=== PATIENT | male | born 1945 | race Caucasian/White ===

== ENCOUNTER → 2017-08-28 | Outpatient (CLI) | payer OTHER, BC | LOC: FIMAGING 15:36 | PROVIDERS: ATTEND Podiatrist Foot & Ankle Surgery | DX: M76.61 Achilles tendinitis, right leg (principal) ==

== ENCOUNTER 2018-03-23 00:40 | Emergency (ER) | payer OTHER, BC ==
--- NOTE | 2018-03-23 01:09 | EDPHY ---
H & P Time Seen by Provider: 03/23/18 00:58 HPI/ROS: CHIEF COMPLAINT: Left knee pain and swelling HISTORY OF PRESENT ILLNESS: 72-year-old male presents to the emergency department by private vehicle with concerns about pain in his left knee. The patient states that he has some known arthritis. He played tennis 2 days earlier in the week and the following day was having some pain in the medial aspect of his left knee. Since that time over last 2-3 days he has had some increased swelling and increased pain. He denies any specific known trauma or injury. He has pain especially with weight-bearing. ROS: He denies numbness or tingling in his toes, pain in his left calf or left ankle. Denies pain in the left hip. Denies pain in his low back. Past Medical/Surgical History: Appendectomy, tonsillectomy, knee surgeries Social History: Smoking Status: Never smoked Physical Exam: On examination the patient has effusion noted to the anterior superior aspect of the left knee. He has very mild pain with palpation in the left medial joint line. Nontender to palpate the lateral joint line. He is able to lift his leg up without any difficulty. His patellar tendon and quadriceps tendon are intact. He is able to flex to about 30-40 degrees before he is limited by pain and swelling. He has no pain with very small passive range of motion. No signs of septic joint. No redness. Nontender to palpate with light touch. His left ankle is nontender. No pain with external or internal rotation of the left hip. He has a strong dorsalis pedis pulse and posterior tibial pulse on the left foot. Calf is nontender. Full range of motion of the right lower extremity. Constitutional: Initial Vital Signs Temperature (C) 36.6 C 03/23/18 00:45 Heart Rate 82 03/23/18 00:45 Respiratory Rate 16 03/23/18 00:45 Blood Pressure 129/68 H 03/23/18 00:45 O2 Sat (%) 98 03/23/18 00:45 O2 Delivery Mode Room Air Allergies/Adverse Reactions: No Known Allergies Allergy (Unverified 12/11/13 22:41) Home Medications: Medication Instructions Recorded Ascorbic Acid [Vitamin C 250 mg 250 mg PO DAILY 12/12/13 (OTC)] Glucosamine Sulfate [Glucosamine 500 mg PO DAILY 12/12/13 Sulfate 500 MG (OTC)] Ibuprofen [Motrin 200 mg (OTC)] 200 mg PO DAILY 12/12/13 Iron 03/23/18 oxyCODONE/APAP 5/325 [Percocet 1 - 2 tab PO Q4-6PRN PRN #15 tab 03/23/18 5/325] MDM/Departure - MDM Imaging Results: Imaging Impressions Knee X-Ray 03/23/18 01:06 Impression: Marked progression in osteoarthritic degenerative changes, as detailed above. As clinically directed, MRI could be considered for further assessment. Imaging: I viewed and interpreted images myself Procedures: Patient was placed in straight leg knee immobilizer and examined post application in good placement with normal DESIGN PAINTER. Medications Given: Discontinued Medications Ibuprofen (Motrin) 600 mg PO EDNOW ONE Stop: 03/23/18 02:10 Last Admin: 03/23/18 02:16 Dose: 600 mg Oxycodone/Acetaminophen (Percocet 5/325mg Prepack#4) 1 btl TAKEHOME EDNOW ONE Stop: 03/23/18 02:11 Last Admin: 03/23/18 02:15 Dose: 1 btl ED Course/Re-evaluation: 72-year-old male presents to the emergency department with pain and swelling to his left knee. On examination the patient has no evidence of septic arthritis. There is no redness or warmth. He has no pain with small passive range of motion. He has limited flexion secondary to his pain and swelling. X-rays reveal significant degenerative changes. I did discuss the case with Dr. Swift who also reviewed the patient's x-rays. He recommended not aspirating the knee. I did explain to the patient that aspirating fluid from his knee maybe potentially cause infection. He was given oral Percocet. He has had a history of anemia and he has taking iron tablets. He has taken ibuprofen with food in the past. I cautioned him with taking the ibuprofen on an empty stomach. I also warned regarding risks of gastrointestinal bleeding. The patient was placed in knee immobilizer and Cam wrap was applied for some compression. He has his own crutches. He was encouraged to have close follow-up with his orthopedic surgeon and return sooner to the emergency department if he develops increasing pain or swelling or if he feels worse in any way. - Depart Disposition: Home, Routine, Self-Care Clinical Impression: Left knee sprain Qualifiers: Encounter type: initial encounter Involved ligament of knee: unspecified ligament Qualified Code(s): S83.92XA - Sprain of unspecified site of left knee, initial encounter Condition: Good Instructions: Oxycodone/Acetaminophen (By mouth), Knee Sprain (ED) Additional Instructions: Cam wrap for compression as discussed. Knee immobilizer for comfort and support. Ibuprofen 600 mg every 8 hr with food as needed for pain. Ice, elevate to help reduce swelling. Percocet for severe pain as directed. Follow up with your orthopedic surgeon this week to recheck. Prescriptions: oxyCODONE/APAP 5/325 [Percocet 5/325] 1 - 2 tab PO Q4-6PRN PRN #15 tab PRN Reason: For Moderate To Severe Pain Referrals: Annalisa Velasquez MD [Primary Care Provider] - As per Instructions Sp Velasquez MD [Medical Doctor] - As per Instructions Ovidio Mo MD [Medical Doctor] - 2-3 days without fail (Orthopedic surgeon on-call)
[2018-03-23] MEDS ORDERED: IBUPROFEN 600 MG TAB PO ONE (02:09)
[2018-03-23] MEDS ORDERED: OXYCODONE/APAP 5/325MG PREPACK#4 BTL TAKEHOME ONE (02:10)
[2018-03-23 02:47] VITALS: BP 141/83
== END 2018-03-23 02:45 | disposition home or self-care (01) ==
DX: S83.92XA Sprain of unspecified site of left knee, initial encounter (principal); X58.XXXA Exposure to other specified factors, initial encounter; Y99.8 Other external cause status; Y93.73 Activity, racquet and hand sports
CPT/HCPCS: 73564; 99283; L1830

== ENCOUNTER → 2018-04-18 | Outpatient (CLI) | payer OTHER, BC | LOC: FIMAGING 09:45 | PROVIDERS: ATTEND Orthopaedic Surgery | DX: Z01.818 Encounter for other preprocedural examination (principal); M17.12 Unilateral primary osteoarthritis, left knee ==

== ENCOUNTER 2018-05-14 09:02 | Observation (INO) | payer OTHER, BC ==
[~2018-05-14 09:02] MED LIST: ROPIVACAINE 0.2% 80 MG, EPINEPHrine 0.2 MG, KETOROLAC TROMETHAMINE 30 MG in SYRINGE 0 ML IU ONE; TRANEXAMIC ACID 3,000 MG in NS (SYRINGE) 50 ML IRR ONE; TRANEXAMIC ACID 3,000 MG/50 ML BAG IRR ONE; VANCOMYCIN 1 GM VIAL ONE
[2018-05-14] MEDS ORDERED: FAMOTIDINE 20 MG TAB PO ONE (09:43)
[2018-05-14] MEDS ORDERED: DEXAMETHASONE 4 MG/ML VIAL IVP ONE (09:43)
[2018-05-14] MEDS ORDERED: ACETAMINOPHEN 325 MG TAB PO ONE (09:43)
[2018-05-14] MEDS ORDERED: ceFAZolin 2 GM/DEXTROSE 100 ML IV ONE (09:43)
[2018-05-14] MEDS ORDERED: LIDOCAINE 1% 2 ML INJ ID PRN (09:44)
[2018-05-14] MEDS ORDERED: LR 1,000 ML IV ONE (09:44)
[2018-05-14] MEDS ORDERED: MIDAZOLAM 2 MG/2 ML VIAL ONE (11:20)
[2018-05-14] MEDS ORDERED: PROPOFOL/EMULSION 500 MG/50 ML BOTTLE IV ONE (11:26)
--- NOTE | 2018-05-14 11:48 | PDANEPAE ---
ANE Past Medical History - Cardiovascular History Hx Hypertension: No Hx Arrhythmias: No Hx Chest Pain: No Hx Coronary Artery / Peripheral Vascular Disease: No Hx CHF / Valvular Disease: No Hx Palpitations: No - Pulmonary History Hx COPD: No Hx Asthma/Reactive Airway Disease: No Hx Recent Upper Respiratory Infection: No Hx Oxygen in Use at Home: No Hx Sleep Apnea: No Sleep Apnea Screening Result - Last Documented: Negative - Neurologic History Hx Cerebrovascular Accident: No Hx Seizures: No Hx Dementia: No - Endocrine History Hx Diabetes: No - Renal History Hx Renal Disorders: No - Liver History Hx Hepatic Disorders: No - Neurological & Psychiatric Hx Hx Neurological and Psychiatric Disorders: No - Cancer History Hx Cancer: No - Congenital Disorder History Hx Congenital Disorders: No - GI History Hx Gastrointestinal Disorders: No - Other Health History Other Health History: ANEMIA - Chronic Pain History Chronic Pain: No - Surgical History Prior Surgeries: R KNEE SCOPE. APPENDECTOMY. TONSILLECTOMY. WISDOM TOOTH. CATARACTS ANE Review of Systems Review of Systems: - Exercise capacity METS (RN): 5 METS ANE Patient History - Allergies Allergies/Adverse Reactions: No Known Allergies Allergy (Verified 04/18/18 13:12) - Home Medications Home Medications: Ascorbic Acid [Vitamin C 250 mg (OTC)] 250 mg PO DAILY 12/12/13 [Last Taken 1 Week Ago ~05/07/18] Ibuprofen [Motrin 200 mg (OTC)] 200 mg PO DAILY PRN 12/12/13 [Last Taken 2 Weeks Ago ~04/30/18] Ferrous Sulfate [Ferrous Sulf 325 MG (*)] 325 mg PO DAILY 03/23/18 [Last Taken 1 Day Ago ~05/13/18] Cholecalciferol Vit D3 [Vitamin D3 (*)] 1,000 units PO DAILY 04/18/18 [Last Taken 1 Week Ago ~05/07/18] Cyanocobalamin [Vitamin B12 (*)] 1,000 mcg PO DAILY 04/18/18 [Last Taken 1 Week Ago ~05/07/18] Magnesium Oxide [Magnesium Oxide 400 mg (*)] 400 mg PO DAILY 04/24/18 [Last Taken 1 Week Ago ~05/07/18] - NPO status NPO Since - Liquids (Date): 05/14/18 NPO Since - Liquids (Time): 08:00 NPO Since - Solids (Date): 06/12/18 NPO Since - Solids (Time): 22:30 - Smoking Hx Smoking Status: Never smoked - Family Anes Hx Family Hx Anesthesia Complications: NEG ANE Labs/Vital Signs - Vital Signs Blood Pressure: 146/82 Heart Rate: 58 Respiratory Rate: 18 O2 Sat (%): 95 Height: 177.8 cm Weight: 76.657 kg ANE Anesthesia Plan Anesthesia Plan: spinal Regional Anesthesia: adductor canal FNB Urgent/Emergent Case: Corinna garibay completed preop but documented later for safe timely pt care
[2018-05-14] MEDS ORDERED: ROPIVACAINE HCL 150 MG/30 ML INJ ONE (12:23)
[2018-05-14] MEDS ORDERED: DIPHENOXYLATE/ATROPINE LOMOTIL 1 TAB PO PRN (12:46)
[2018-05-14] MEDS ORDERED: ONDANSETRON DISINTEGRATING 4 MG TAB PO PRN (12:46)
[2018-05-14] MEDS ORDERED: CYCLOBENZAPRINE 10 MG TAB PO PRN (12:46)
[2018-05-14] MEDS ORDERED: METOCLOPRAMIDE 10 MG/2 ML VIAL IVP PRN (12:46)
[2018-05-14] MEDS ORDERED: BISACODYL 10 MG SUPP PR PRN (12:46)
[2018-05-14] MEDS ORDERED: oxyCODONE IR 5 MG TAB PO PRN (12:46)
[2018-05-14] MEDS ORDERED: TEMAZEPAM 15 MG CAP PO PRN (12:46)
[2018-05-14] MEDS ORDERED: PROMETHAZINE HCL 25 MG SUPPR PR PRN (12:46)
[2018-05-14] MEDS ORDERED: ONDANSETRON 4 MG/2 ML VIAL IVP PRN ×2 (12:46→12:57)
[2018-05-14] MEDS ORDERED: diphenhydrAMINE 25 MG CAP PO PRN (12:46)
[2018-05-14] MEDS ORDERED: PROMETHAZINE HCL 25 MG/ML INJ IVP PRN ×2 (12:46→12:57)
[2018-05-14] MEDS ORDERED: LACTULOSE 20 GM/30 ML UDCUP PO PRN (12:46)
[2018-05-14] MEDS ORDERED: POLYETHYLENE GLYCOL 3350 17 GM PKT PO PRN (12:46)
[2018-05-14] MEDS ORDERED: MAGNESIUM HYDROXIDE 30 ML UDCUP PO PRN (12:46)
--- NOTE | 2018-05-14 12:46 | POSTOPPROG ---
Post Op Note Date of Operation: 05/14/18 Surgeon: Jatin Estrada Whiting Machine Operator: eri estrada Anesthesiologist: dr. handley Anesthesia: Spinal Pre-op Diagnosis: left knee OA Post-op Diagnosis: same Indication: left knee pain Procedure: L medial partial knee arthroplasty robot assisted Findings: severe knee OA Inf/Abcess present in the surg proc area at time of surgery?: No EBL: 50-100
[2018-05-14] MEDS ORDERED: NALOXONE HCL 0.4 MG/ML INJ IVP PRN (12:57)
[2018-05-14] MEDS ORDERED: PHENYLEPHRINE HCL 100 MCG/ML SYR IVP PRN (12:57)
[2018-05-14] MEDS ORDERED: fentaNYL 100 MCG/2 ML INJ IVP PRN (12:57)
[2018-05-14] MEDS ORDERED: LR 500 ML IV PRN (12:57)
--- NOTE | 2018-05-14 12:58 | POSTANESTH ---
Post Anesthetic Evaluation Cardiovascular Status: Normal, Stable Respiratory Status: Normal, Stable Level of Consciousness/Mental Status: Can Participate in Eval Pain Control: Adequate, Prn Tx Ordered Nausea/Vomiting Control: Adequate, Prn Tx Ordered Complications Possibly Related to Anesthesia: None Noted
[2018-05-14] MEDS ORDERED: LR 1,000 ML IV SCH (13:00)
--- NOTE | 2018-05-14 14:18 | PDHPUP ---
History & Physical Update H&P update statement: This history and physical update is based on an assessment of the patient which was completed after admission or registration (within 24 hours), but prior to the surgery/procedure. H&P update: H&P reviewed & patient examined, no change in patient's condition since H&P completed
[2018-05-14] MEDS: ACETAMINOPHEN 325 MG TAB PO SCH (18:05)
[2018-05-14] MEDS: ceFAZolin 2 GM/DEXTROSE 100 ML IV SCH (18:06)
--- NOTE | 2018-05-14 20:34 | GOP ---
[f rep st] OPERATIVE REPORT DATE OF OPERATION: 05/14/2018 SURGEON: Davion Alvarado MD NEUROSURGEON: Davion Alvarado MD. MACHINE OPERATOR REPLANTER: HANDY Fernandez. ANESTHESIA: Spinal. PREOPERATIVE DIAGNOSIS: Left knee osteoarthritis. POSTOPERATIVE DIAGNOSIS: Left knee osteoarthritis. PROCEDURE PERFORMED: Left medial compartment partially placed with computer navigation and robotic a ÁNGELA rosenbaum uni-knee. FINDINGS: Pathology: Severe medial compartment osteoarthritis left knee, left thigh and left femur. ESTIMATED BLOOD LOSS: 30 cc. INDICATIONS: This is a 72-year-old man with progressive pain of the left knee unresponsive to conser vative care. Risks and benefits of surgical intervention were explained in detail. DESCRIPTION OF PROCEDURE: The patient was brought to the operating room and placed on the table in s upine position. Spinal anesthesia was induced without difficulty. A pneumatic tourniquet was applie d about the left proximal thigh and the leg was prepped and draped in sterile fashion. Attention was turned first to the distal aspect of the left femur. At 3 cm proximal to the lateral rise of the fe mur, 2 percutaneous half pins were placed for fixation of the femoral array. In a similar fashion, 2 pins were placed anterolateral on the tibia for fixation of the tibial array. External land marking and registration of the hip center was performed without difficulty. After exsanguination by elevation, the tourniquet was inflated. Incision was made from the tibial tuberosity to the superior pole of the patella. Dissection was car ried out through the subcutaneous tissue to the deep fascia using Bovie electrocautery for hemostasis . Medial parapatellar arthrotomy was carried out to the superior pole of the patella. The medial co llateral ligament was elevated and the infrapatellar fat pad was resected. Internal femoral and tibi al registration was carried out without difficulty and the femoral and tibial checkpoints were placed and verified for accuracy. Attention was turned to the femur. The foot print for the size 4 femoral component was cut with the 6 mm bur using the KitBoost robotic system and verified for accuracy against the CT based plan. The hole was cut for the femoral post. In a similar fashion, the 6 mm bur was used to cut the foot print for t he size 4 tibial component using the SHLOMO system and verified for accuracy against the CT based plan. Attention was turned to the posterior aspect of the knee and remnants of the medial meniscus were exc ised. The posterior capsule was injected with ropivacaine, epinephrine and Toradol. Trial reduction was carried out and there was excellent range of motion, alignment and stability using the size 4 fe moral component and the size 4 x 9 mm polyethylene tibial component. All trials were then removed. The joint was thoroughly irrigated and carefully dried. One package o f cement and 1 gram of vancomycin were mixed in the vacuum mixer and placed on the fixation surfaces of all components. The components were implanted and all excess cement was thoroughly removed. Impla nt placement was verified against the CT view plan and found to be excellent. The tourniquet was deflated and all bleeders were coagulated. The wound was thoroughly irrigated and closed using interrupted sutures of 2-0 Vicryl for the joint capsule. The subcu was closed with 3-0 Vicryl and the skin with 4-0 Monocryl. Dermabond and Steri-Strips were applied, followed by a compr essive dressing. The patient was then moved from the operating room to the recovery room in good con dition, having tolerated the procedure well. CASE CLASSIFICATION: Clean. /[id number]/MODL
[2018-05-14] MEDS: ASPIRIN 81 MG CHEWABLE TAB PO SCH (21:12)
[2018-05-14] MEDS: FAMOTIDINE 20 MG TAB PO SCH (21:12)
[2018-05-14] MEDS: SENNOSIDES/DOCUSATE SODIUM TAB PO SCH (21:13)
[2018-05-15] MEDS: ACETAMINOPHEN 325 MG TAB PO SCH ×2 (00:34→05:30)
[2018-05-15] MEDS: ceFAZolin 2 GM/DEXTROSE 100 ML IV SCH (00:35)
[2018-05-15 07:32] VITALS: BP 120/67
[2018-05-15] MEDS: ASPIRIN 81 MG CHEWABLE TAB PO SCH (08:30)
[2018-05-15] MEDS: FAMOTIDINE 20 MG TAB PO SCH (08:30)
[2018-05-15] MEDS: SENNOSIDES/DOCUSATE SODIUM TAB PO SCH (08:31)
--- NOTE | 2018-05-15 08:46 | SOAPPROG ---
SOAP Progress Note Assessment/Plan: Assessment: Patient is doing well POD 1 s/p L med MPL Pain management: pain is well controlled on oral pain meds. VTE ppx: recommend aspirin 81 mg BID for 4 weeks, cont KVNG and SCDs Anemia: level is expected initially postop. Asymptomatic. Continue to monitor D/c planning: d/c to home today pending release from PT Plan: 05/15/18 08:46 Subjective: no pain, denies SOB, chest pain and n/V Objective: Vital Signs Temp Pulse Resp BP Pulse Ox 36.6 C 52 L 16 120/67 94 05/15/18 07:29 05/15/18 07:29 05/15/18 07:29 05/15/18 07:29 05/15/18 07:29 Laboratory Results 05/15/18 04:35 05/14/18 05/15/18 05/16/18 05:59 05:59 05:59 Intake Total 850 Output Total 700 Balance 150 LLE: incision dressing is clean and dry, NVI, +pf/df ICD10 Worksheet Patient Problems: Problems Problem Status Onset Primary localized osteoarthritis of left knee Acute SBO (small bowel obstruction) Acute
[2018-05-15] MEDS ORDERED: FERROUS SULFATE 325 MG TAB PO SCH (09:00)
--- NOTE | 2018-05-15 15:35 | GDS ---
[f rep st] DISCHARGE SUMMARY ADMISSION DIAGNOSIS: Left knee osteoarthritis. DISCHARGE DIAGNOSIS: Left knee osteoarthritis. PROCEDURE: Left partial knee arthroplasty, medial compartment, robotic assisted. Computer navigatio n. VTE PROPHYLAXIS: Recommend aspirin 81 mg twice daily for 4 weeks. BRIEF DESCRIPTION OF HOSPITAL STAY: Patient was admitted for an elective joint arthroplasty. The pa tient tolerated the procedure well and has passed physical therapy. The patient was given appropriat e antibiotic prophylaxis and venous thromboembolism prophylaxis. The patient's pain was well control led on oral pain medication, patient was holding down food, and had urinated. Decision was made to d ischarge the patient. The patient was given post-operative prescriptions pre-operatively. PLAN: Follow up as scheduled in Dr. Alvarado's office June 05 at 9:30 a.m. /[id number]/MODL
== END 2018-05-15 12:51 | disposition home or self-care (01) ==
LOC: F3N 09:02
PROVIDERS: ADMIT Orthopaedic Surgery; ATTEND Orthopaedic Surgery
PROC: 8E0Y0CZ Robotic Assisted Procedure of Lower Extremity, Open Approach (ICD-10-PCS; principal; 2018-05-14 11:15)
PROC: 8E0YXBG Computer Assisted Procedure of Lower Extremity, With Computerized Tomography (ICD-10-PCS; principal; 2018-05-14 11:15)
PROC: 0SRD069 Replacement of Left Knee Joint with Oxidized Zirconium on Polyethylene Synthetic Substitute, Cemented, Open Approach (ICD-10-PCS; principal; 2018-05-14 11:15)
DX: M17.11 Unilateral primary osteoarthritis, right knee (principal)
CPT/HCPCS: 27446; 73560; 97110; 97116; 97161; C1713; C1776; G8978; G8979; G8980; J0171; J0690; J1100; J1885; J2250; J2704; J2795; J3370

== ENCOUNTER 2018-05-22 03:47 | Emergency (ER) | payer OTHER, BC ==
[2018-05-22] MEDS ORDERED: fentaNYL 100 MCG/2 ML INJ IVP ONE (03:55)
[2018-05-22] MEDS ORDERED: ONDANSETRON 4 MG/2 ML VIAL IVP ONE (03:55)
[2018-05-22] MEDS ORDERED: NS 1,000 ML IV ONE ×2 (03:55)
--- NOTE | 2018-05-22 03:58 | EDPHY ---
H & P Stated Complaint: abd pain Time Seen by Provider: 05/22/18 03:55 HPI/ROS: HPI The patient presents brought in by ambulance for abdominal pain, nausea and vomiting which began 4-5 hours prior to presentation. He went out to dinner and afterwards began to experience abdominal pain which she describes as a mild discomfort. After that he began vomiting and has had vomiting for the last 4 hr intermittently, only able to take sips of fluid in between. He has had similar episodes of pain he reports. He is about 1 week status post total knee arthroplasty by Dr. Alvarado. He has recuperating at home. He is been monitoring his bowel movements and has had normal bowel movements over the last several days. He has not had any fevers or chills. In the ambulance he received Zofran 4 mg IV. REVIEW OF SYSTEMS Constitutional: No fever, no chills. Eyes: No discharge. ENT: No sore throat. Cardiovascular: No chest pain, no palpitations. Respiratory: No cough, no shortness of breath. Gastrointestinal: No abdominal pain, no vomiting. Genitourinary: No hematuria. Musculoskeletal: No back pain. Skin: No rashes. Neurological: No headache. PMHx: Recent total knee arthroplasty, status post appendectomy, had bowel obstruction in 2013 related to constipation Soc Hx: Here with his PHYSICAL General Appearance: Alert, uncomfortable appearing Eyes: Pupils equal and round no pallor or injection ENT, Mouth: Mucous membranes dry Respiratory: There are no retractions, lungs are clear to auscultation Cardiovascular: Regular rate and rhythm Gastrointestinal: Abdomen is soft and mildly diffusely tender in all quadrants without any rebound or guarding Neurological: A&O, moves all extremities Skin: Warm and dry, no rashes Musculoskeletal: Neck is supple non tender Extremities: symmetrical, full range of motion Psychiatric: Patient is oriented X 3, there is no agitation Source: Patient Exam Limitations: No limitations - Personal History Current Tetanus Diphtheria and Acellular Pertussis (TDAP): Yes - Medical/Surgical History Hx Asthma: No Hx Chronic Respiratory Disease: No Hx Diabetes: No Hx Cardiac Disease: No Hx Renal Disease: No Hx Cirrhosis: No Hx Alcoholism: No Hx HIV/AIDS: No Hx Splenectomy or Spleen Trauma: No Other PMH: Appendectomy, R knee surgery, L knee surgery, Nelson teeth rem., tonsillectomy - Social History Smoking Status: Never smoked Constitutional: Initial Vital Signs Temperature (C) 36.6 C 05/22/18 03:50 Heart Rate 89 05/22/18 03:50 Respiratory Rate 20 05/22/18 03:50 Blood Pressure 143/94 H 05/22/18 03:50 O2 Sat (%) 98 05/22/18 03:50 O2 Delivery Mode Room Air Allergies/Adverse Reactions: No Known Allergies Allergy (Verified 04/18/18 13:12) Home Medications: Medication Instructions Recorded Ascorbic Acid [Vitamin C 250 mg 250 mg PO DAILY 12/12/13 (*)] Ferrous Sulfate [Ferrous Sulf 325 325 mg PO DAILY 03/23/18 MG (*)] Cholecalciferol Vit D3 [Vitamin D3 1,000 units PO DAILY 04/18/18 (*)] Cyanocobalamin [Vitamin B12 (*)] 1,000 mcg PO DAILY 04/18/18 Magnesium Oxide [Magnesium Oxide 400 mg PO DAILY 04/24/18 400 mg (*)] Acetaminophen [Tylenol 325mg (*)] 650 mg PO Q6HRS tab 05/15/18 Aspirin [Aspirin 81mg (*)] 81 mg PO BID tab.chew 05/15/18 Polyethylene Glycol 3350 [Miralax 17 gm PO DAILY PRN pkt 05/15/18 17 gm (*)] Sennosides/Docusate Sodium 1 - 2 tab PO BID tab 05/15/18 [Senokot-S] celeCOXIB [Celebrex (*)] 200 mg PO DAILY cap 05/15/18 oxyCODONE IR [Oxycodone Ir (*)] 5 - 10 mg PO Q3HRS PRN tab 05/15/18 Medical Decision Making - Diagnostics Imaging Results: CT scan abdomen pelvis with IV contrast demonstrates ileus, discussed with Dr. Slater of Radiology. Imaging: Discussed imaging studies w/ scallop shucker Radiologist Differential Diagnosis: This is a 72-year-old man, 1 week postoperative from total knee arthroplasty, presents with abdominal pain, nausea and vomiting for the last 4-5 hours. On exam, he is uncomfortable appearing with diffuse abdominal tenderness and distension. Differential diagnosis includes small bowel obstruction, constipation, gastroenteritis, gastritis. In the emergency department, patient was given IV fluids and antiemetics. He felt well after these treatments. Labs revealed slight leukocytosis. Decision was made for CT scan of his abdomen which demonstrated an ileus. I suspect this is from his opiate pain medication use. I have discussed this with him. He thinks he may be able to cut down on his opiate use. I have also advised him that he can take MiraLax as needed and he will try this. He was able to tolerate a p.o. Challenge without difficulty and asked to go home , he will be discharged with his . He is happy with this plan. - Data Points Laboratory Results: Laboratory Results 05/22/18 03:40 05/22/18 03:40 05/22/18 05/22/18 05/22/18 04:50 03:40 03:40 WBC 12.86 10^3/uL H 10^3/uL (3.80-9.50) RBC 4.89 10^6/uL 10^6/uL (4.40-6.38) Hgb 14.8 g/dL g/dL (13.7-17.5) Hct 43.5 % % (40.0-51.0) MCV 89.0 fL fL (81.5-99.8) MCH 30.3 pg pg (27.9-34.1) MCHC 34.0 g/dL g/dL (32.4-36.7) RDW 13.3 % % (11.5-15.2) Plt Count 358 10^3/uL 10^3/uL (150-400) MPV 9.1 fL fL (8.7-11.7) Neut % (Auto) 91.0 % H % (39.3-74.2) Lymph % (Auto) 4.5 % L % (15.0-45.0) [place] % (Auto) 3.8 % L % (4.5-13.0) Eos % (Auto) 0.1 % L % (0.6-7.6) Baso % (Auto) 0.1 % L % (0.3-1.7) Nucleat RBC Rel Count 0.0 % % (0.0-0.2) Absolute Neuts (auto) 11.70 10^3/uL H 10^3/uL (1.70-6.50) Absolute Lymphs (auto) 0.58 10^3/uL L 10^3/uL (1.00-3.00) Absolute Monos (auto) 0.49 10^3/uL 10^3/uL (0.30-0.80) Absolute Eos (auto) 0.01 10^3/uL L 10^3/uL (0.03-0.40) Absolute Basos (auto) 0.01 10^3/uL L 10^3/uL (0.02-0.10) Absolute Nucleated RBC 0.00 10^3/uL 10^3/uL (0-0.01) Immature Gran % 0.5 % % (0.0-1.1) Immature Gran # 0.06 10^3/uL 10^3/uL (0.00-0.10) RBC/WBC/PLT Morphology TNP Platelet Estimate TNP Sodium 138 mEq/L mEq/L (135-145) Potassium 4.7 mEq/L mEq/L (3.3-5.0) Chloride 96 mEq/L L mEq/L (97-110) Carbon Dioxide 23 mEq/l mEq/l (22-31) Anion Gap 19 mEq/L H mEq/L (8-16) BUN 19 mg/dL mg/dL (7-23) Creatinine 0.9 mg/dL mg/dL (0.7-1.3) Estimated GFR > 60 Glucose 157 mg/dL H mg/dL (70-100) Calcium 9.9 mg/dL mg/dL (8.5-10.4) Total Bilirubin 0.8 mg/dL mg/dL (0.1-1.4) Conjugated Bilirubin 0.4 mg/dL mg/dL (0.0-0.5) Unconjugated Bilirubin 0.4 mg/dL mg/dL (0.0-1.1) AST 20 IU/L IU/L (17-59) ALT 32 IU/L IU/L (21-72) Alkaline Phosphatase 76 IU/L IU/L (38-126) Total Protein 7.4 g/dL g/dL (6.3-8.2) Albumin 4.4 g/dL g/dL (3.5-5.0) Lipase 192 IU/L IU/L (23-300) Urine Color YELLOW Urine Appearance CLEAR Urine pH 6.0 (5.0-7.5) Ur Specific [place] 1.018 (1.002-1.030) Urine Protein NEGATIVE (NEGATIVE) Urine Ketones TRACE H (NEGATIVE) Urine Blood NEGATIVE (NEGATIVE) Urine Nitrate NEGATIVE (NEGATIVE) Urine Bilirubin NEGATIVE (NEGATIVE) Urine Urobilinogen NEGATIVE EU EU (0.2-1.0) Ur Leukocyte Esterase NEGATIVE (NEGATIVE) Urine Glucose NEGATIVE (NEGATIVE) Medications Given: Discontinued Medications Fentanyl (Sublimaze) 50 mcg IVP EDNOW ONE Stop: 05/22/18 03:56 Last Admin: 05/22/18 04:08 Dose: 50 mcg Sodium Chloride (Ns) 1,000 mls @ 0 mls/hr IV EDNOW ONE; Wide Open PRN Reason: Protocol Stop: 05/22/18 03:56 Last Admin: 05/22/18 04:07 Dose: 1,000 mls Sodium Chloride (Ns) 1,000 mls @ 0 mls/hr IV EDNOW ONE; Wide Open PRN Reason: Protocol Stop: 05/22/18 03:56 Last Admin: 05/22/18 04:08 Dose: 1,000 mls Ondansetron HCl (Zofran) 4 mg IVP EDNOW ONE Stop: 05/22/18 03:56 Last Admin: 05/22/18 04:08 Dose: 4 mg Ondansetron HCl (Zofran Odt 4 Mg Prepack#2) 1 btl TAKEHOME EDNOW ONE Stop: 05/22/18 05:49 Last Admin: 05/22/18 05:53 Dose: 1 btl Departure - Departure Disposition: Home, Routine, Self-Care Clinical Impression: Ileus Vomiting Qualifiers: Vomiting type: unspecified Vomiting Intractability: non-intractable Nausea presence: with nausea Qualified Code(s): R11.2 - Nausea with vomiting, unspecified Condition: Good Instructions: Ondansetron (By mouth), Ileus (ED) Additional Instructions: Please make sure to drink small sips of fluid throughout the day. You should return to the emergency department if your worse in any way. Referrals: Patient,NotPresent [Primary Care Provider] - As per Instructions
[2018-05-22 04:04] LABS: PLATELET COUNT 358 10^3/uL (150-400)
[2018-05-22] MEDS ORDERED: IOPAMIDOL (ISOVUE-300) 100 ML BTL ONE (04:53)
[2018-05-22 05:41] VITALS: BP 135/66
[2018-05-22] MEDS ORDERED: ONDANSETRON 4MG PREPACK#2 BTL TAKEHOME ONE (05:48)
== END 2018-05-22 05:59 | disposition home or self-care (01) ==
LOC: EDUNIT#
DX: K56.7 Ileus, unspecified (principal); E86.9 Volume depletion, unspecified; Z79.82 Long term (current) use of aspirin; Z90.89 Acquired absence of other organs
CPT/HCPCS: 74177; 96361; 96374; 99285; J2405; J3010; Q9967